=== PATIENT | female | born 1980 | race Caucasian/White ===

== ENCOUNTER → 2020-03-20 | Outpatient (CLI) | payer OTHER ==
[~2020-03-20] MED LIST: ADDERALL 10 MG10 MG PO; FLUOXETINE HCL40 MG PO; OMEPRAZOLE40 MG PO; ZYRTEC10 M5 PO; [UNRECOGNIZED DRUG - OTHER] SUBLING
== END ==
LOC: LAB 10:22
PROVIDERS: ATTEND Specialist
DX: Z01.812 Encounter for preprocedural laboratory examination (principal); Z20.828 Contact with and (suspected) exposure to other viral communicable diseases

== ENCOUNTER → 2020-03-22 | Outpatient (CLI) | payer OTHER ==
[~2020-03-22] VITALS: Ht 167.6 cm; Wt 142.9 kg
--- NOTE | ~2020-03-22 | P ---
[facility] [place] [address] PROCEDURE REPORT Name: THAIS GILL Sam [facility] [id number] Admission: 03/22/20 Attend Phys: Mayo Nicholas Discharge: Date of : 76 Report #: [id number] THIS REPORT FOR: cc: FAM - Family physician unknown FAM - Family physician unknown Mayo Castillo MD ~ CC: MALLORY ANNA unknown Telma Gutierrez DO DATE OF SERVICE: 03/22/2020 PROCEDURE PERFORMED: Upper endoscopy with biopsies. HISTORY OF PRESENT ILLNESS: The patient is a 39-year-old female with a history of clearing her throat often possibly due to gastroesophageal reflux disease, currently taking Prilosec 40 mg b.i.d., but continues to have symptoms. She also has had previous sinus surgeries with a known history of sinus drainage. She denies any heartburn symptoms, no true dysphagia. No nausea or vomiting. She has not tried a different brand of PPI in the past. Plan is for upper endoscopy. DESCRIPTION OF PROCEDURE: The risks and benefits of the procedure were explained to the patient, those risks including but not limited to bleeding, perforation, the risk of sedation. She understood these risks and gave informed consent. Sedation was given using propofol per anesthesia. Next, using a standard Olympus upper endoscope, the scope was placed in the patient's mouth and advanced under direct vision through the esophagus, stomach and into the second portion of the duodenum. The larynx was normal in appearance. In the upper esophagus, 2 small possible papillomas were noted, both were 3 mm in size, both removed with cold forceps. The mid and distal esophagus was normal. GE junction was normal. No evidence of esophagitis. Overall, the gastric mucosa was normal. The pylorus was normal and patent. The duodenal bulb, first and second portion were all normal. The scope was then withdrawn and the procedure terminated. The patient tolerated the procedure well. RECOMMENDATIONS: 1. Await biopsy results. 2. We discussed a trial of different PPI therapy next to see if improvement in her symptoms. I explained to the patient she could consider the possibility of fundoplication in the future if reflux is etiology. [facility] [address] [place] [address] PROCEDURE REPORT Name: GILLTHAIS Room #: REG [facility] Clarence#: [id number] Admission: 03/22/20 Attend Phys: Mayo Nicholas Discharge: Date of : 76 Report #: [id number] Thank you for allowing me to participate in her care. By: 1017 [id number] Mayo Castillo MD /nt
--- NOTE | 2020-03-24 18:06 | PATH ---
[facility] [address] [place] [address] PATHOLOGY RPT PROCEDURE Name: ELENA LEIVA Room #: REG [facility].#: [id number] Admission: 03/22/20 Date of : 76 Discharge: Report #: [id number] Path Case #: [id number] [facility] Accession Number: [id number] . 01 Material submitted: . esophagus - BIOPSY OF ESOPHAGEAL NODULE R/O PAPILLOMA X2 . 01 Clinical history: . DTS/EGD/REFLUX . 02 Diagnosis: Squamous mucosa, esophageal nodule, rule out papilloma x2, endoscopic biopsy: - Squamous papilloma x2. - Negative for intestinal metaplasia or dysplasia. (IUV:pit 03/24/2020) QTP 03/24/2020 1242 Local . 02 Electronically signed: . Mari Garcia MD, Pathologist NPI- [id number] . 01 Gross description: . Received in formalin labeled "Elena Leiva, BX of esophageal nodule rule out papilloma x2" are multiple cordero-brown soft tissue fragments measuring in aggregate 0.9 x 0.3 x 0.1 cm. The specimen is submitted entirely in A1. ([facility] [place]; 03/23/2020) [facility] 03/23/2020 1248 Local . 02 Pathologist provided ICD-10: D13.0 . 02 CPT . 775683 Specimen Comment: A courtesy copy of this report has been sent to [phone], [phone] Specimen Comment: [phone] Specimen Comment: Report sent to / DR CAPONE Performed at: [address], [place] [id number] MD Nahid Tran MD Phone: [phone] Performed at: [address], [place] [id number] MD Mari Garcia MD Phone: [phone]
== END | disposition home or self-care (01) ==
LOC: GI 07:58
PROVIDERS: ATTEND Specialist
DX: K21.9 Gastro-esophageal reflux disease without esophagitis (principal); D13.0 Benign neoplasm of esophagus; F32.9 Major depressive disorder, single episode, unspecified; F41.9 Anxiety disorder, unspecified; G47.30 Sleep apnea, unspecified; Z98.890 Other specified postprocedural states; Z79.899 Other long term (current) drug therapy; Z87.891 Personal history of nicotine dependence; Z88.8 Allergy status to other drugs, medicaments and biological substances
CPT/HCPCS: 62110; 62900